=== PATIENT | female | born 1995 | race African-American/Black ===

== ENCOUNTER 2021-02-25 13:11 | Emergency (ER) | payer OTHER ==
[~2021-02-25] VITALS: Ht 177.8 cm; Wt 66.0 kg
[2021-02-25 13:24] VITALS: BP 125/63
== END 2021-02-25 15:46 | disposition home or self-care (01) ==
LOC: ER 13:11
DX: J06.9 Acute upper respiratory infection, unspecified (principal); J02.9 Acute pharyngitis, unspecified; I49.9 Cardiac arrhythmia, unspecified
CPT/HCPCS: 93005; 99283